=== PATIENT | male | born 2000 | race Caucasian/White ===

== ENCOUNTER 2024-05-20 08:00 | Emergency (ER) | payer BC, SELFPAY ==
--- NOTE | ~2024-05-20 | XR_ITS ---
XR wrist RT min 3V Ordering provider: Jamari Duff MD History: . injury, right wrist pain . Comparison: None. FINDINGS: BONES: No acute fracture or dislocation. Postoperative changes seen in the scaphoid bone. JOINT SPACES: Normal. SOFT TISSUES: Postoperative changes in the soft tissues seen anteriorly. IMPRESSION: No acute osseous abnormality right wrist. Postoperative changes in the scaphoid bone. Reviewed, dictated and finalized at location A.
[2024-05-20 08:06] VITALS: BP 112/75; PULSE 72; RESP 16; TEMP 36.7; O2SAT 100
--- OUTSIDE RECORDS SUMMARY | 2024-05-20 08:06 | XMS_ITS | Clinical Summary ---
Author Organization [facility] Address [address] [place] [address] Phone Care Team Providers Care Bottle Gauger Name Role Phone Christy Lombardo APRN, ANCA Primary Care P katie Allergies No known active allergies Medications No known medications Active Problems Problem Noted Date Diagnosed Date Fracture of facial bone 05/07/2011 Immunizations Immunization Administration Dates Next Due DTAP VACCINE 09/29/2001,2000,2000 DTAP VACCINE, UNSPECIFIED FORMULATION 05/08/2005 ,2000 HEP B/HIB Combined Vaccine 2000 Hepatitis A Vaccine,unspecif ied Formulation 07/17/2006,10/28/2005 Hepatitis B Vaccine, Pediatric/adolescent 2000,2000 Hib Vaccine,unspecified Formulation 09/29/2001,0 2000,2000 Hpv, Unspecified Formulation 10/10/2011 Human Papillomavirus (HPV) 9 -valent Vaccine 02/13/2015,10/12/2014 Inactivated Polio Vaccine 05/08/2005,,2000,08/18,2000 MMR Vaccine 04/30/2004,04/23/2001 Meningococcal Group B OMV 09/17/2018,09/15/2017 Meningococcal Vaccine 09/15/2017 Meningococcal Vaccine, Unspe cified Formulation 10/10/2011 Pneumococcal Vaccine Peds - 7 Valent 2000, 2000,2000 TD VACCINE 08/31/2021 TDAP Vaccine 10/24/2010 Varicella Vaccine Live 07/17/2006,04/23/2001 Social History Tobacco Use Types Packs/Day Years Used Date Smoking Tobacco: Never Smokeless Tobacco: Never Tobacco Cessation:Counseling Given: Not Answered Alcohol Use Standard Drinks/Week Comments No 0 (1 standard drink = 0.6 oz pur e alcohol) [facility] Utilities Answer Date Recorded In the past 12 months has [employer], gas, oil, or water company threatened to shut off services in your home? Patient declined 10/05/2023 Social Connection and Isolat ion Panel [NHANES] Answer Date Recorded In a typical week, how many times do you talk on the phone with family, friends, or neighbors? More than three times a week 10/05/2023 How often do you get togethe r with friends or relatives? Twice a week 10/05/2023 How often do you attend chur ch or jewish services? 1 to 4 times per year 10/05/2023 Do you belong to any clubs o r organizations such as christian groups, unions, fraternal or athletic groups, or school groups? No 10/05/2023 How often do you attend meet ings of the clubs or organizations you belong to? Patient declined 10/05/2023 Are you , , di vorced, , never , or living with a partner? Living with partner 10/05/2023 AUDIT-C Answer Date Recorded Q1: How often do you have a drink containing alc ohol? 2-4 times a month 10/05/2023 Q2: How many drinks containi ng alcohol do you have on a typical day when you are drinking? 3 or 4 10/05/2023 Q3: How often do you have si x or more drinks on one occasion? Monthly 10/05/2023 Overall Financial Resource Strain (CARDIA) Answe r Date Recorded How hard is it for you to pa y for the very basics like food, housing, medical care, and heating? Patient declined 10/05/2023 PHQ-2 Answer Date Recorded Total Score - Questions 1-9 0 08/31 [facility] - Occupational Stress Questionnaire Answer Date Recorded Do you feel stress - tense, restless, nervous, or anxious, or unable to sleep at night because your mind is troubled all the time - these days? Only a little 10/05/2023 Exercise Vital Sign Answer Date Recorde d On average, how many days pe r week do you engage in moderate to strenuous exercise (like a brisk walk)? 4 days 10/05/2023 On average, how many minutes do you engage in exercise at this level? 60 min 10/05/2023 Hunger Vital Sign Answer Date Recorded Within the past 12 months, y ou worried that your food would run out before you got the money to buy more. Patient declined Within the past 12 months, t he food you bought just didn't last and you didn't have money to get more. Patient declined 06/2023 PRAPARE - Transportation Answer Date Re corded In the past 12 months, has l ack of transportation kept you from medical appointments or from getting medications? No 06/2023 In the past 12 months, has l ack of transportation kept you from meetings, work, or from getting things needed for daily living? No 10/05/2023 Housing Stability Vital Sign Answer Terry e Recorded In the last 12 months, was t here a time when you were not able to pay the mortgage or rent on time? Patient declined 10/05/19 24 Number of Times Moved in the Last Year Not on fi le 10/05/2023 At any time in the past 12 m [facility], were you homeless or living in a half-way (including now)? Patient declined 10/05/2023 Sexually Active Control Partners Comments Yes Female Sex and Gender Information Value Date Recorded Sex Assigned at Male 04/13/2023 4:34 PM SENIOR INTERNAL AUDITOR Legal Sex Male 4:51 PM CDT Gender Identity Male 04/13/2023 4:34 PM SENIOR INTERNAL AUDITOR Sexual Orientation Straight 04/13/2023 4: 34 PM SENIOR INTERNAL AUDITOR Last Filed Vital Signs Vital Sign Reading Time Taken Comments Blood Pressure 120/74 10/07/2023 3:49 PM CDT Pulse 106 10/07/2023 3:49 PM CDT Temperature 36.8 C (98.2 F) 10/07/2023 3:49 PM CDT Respiratory Rate 20 10/07/2023 3:49 PM CDT Oxygen Saturation 97% 10/07/2023 3:49 PM CDT Inhaled Oxygen Concentration - - Weight 80.7 kg (178 lb) 10/07/2023 3:49 PM CDT Height 177.8 cm (5' 10 ) 10/07/2023 3:49 PM CDT Body Mass Index 25.54 10/07/2023 3:49 PM CDT Plan of Treatment Health Maintenance Due Date Last Done Comments Hepatitis C Virus (HCV) Screening 2000 Influenza Immunization (#1) 2023 SARS-COV-2 Immunization (2023- season) 2023 DTaP/Tdap/Td Immunization (8 - Td or Tdap) 09/01/2031 08/31/2021, 10/24/2010, 05/08/2005, Additional history exists Respiratory Syncytial Virus (RSV) Immunization (Adult) (1 - 1-dose 75+ series) 2075 Hepatitis B Immunization Completed 001, 2000, 2000 Pneumococcal Immunization Combined Aged Out 2000, 2000, 2000 No longer eligible based on patient's age to complete this topic Human Papillomavirus (HPV) Immunization Completed 02/13/2015, 10/12/2014, 10/10/2011 Meningococcal Immunization (ACWY) Completed 09/15/2017, 10/10/2011 Meningococcal B Immunization Discontinued 09/17/2018, 09/15/2017 Rotavirus Immunization Aged Out No lo nger eligible based on patient's age to complete this topic Insurance Member Subscriber Plan / Payer (Ef fective 2023-Present) Name:Marcelle Montoya Relation to Subscriber:Self Name:Marcelle Montoya Payer ID:[id number] Type:PPO Address: [address] [place] [address] [place] Care Teams Bottle Gauger Relationship Specialty Start Date End Date Christy Lombardo APRN, MILL HAND [address] [place] [address] PCP - General Advanced Practice Nurse 09/17/19
--- OUTSIDE RECORDS SUMMARY | 2024-05-20 08:06 | XMS_ITS | Referral Summary ---
Author Organization [facility] Address [address] [place] [address] Care Team Providers Care Director Of Front Office Name Role Phone Christy Lombardo NP Primary Care Provide r Keisha Kern OT Unavailable Unavailab le Allergies No known active allergies Medications fluticasone propionate (FLONASE) 50 mcg/actuation nasal spray Administer 2 sprays into each nostril daily 15.8 mL 1 0 Active Additional Information Patient taking differently:2 spray each nostrilEvery morning, Indications: Allergic Rhinitis, Informant: Self, Reported on 11/22/2019 acetaminophen 500 mg capsule Take 2 capsules (1,000 mg total) by mouth every 6 (six) hours 30 tablet 0 Active Additional Information Patient taking differently:1,000 mg oralEvery 6 hours PRN, Indications: Pain, Informant: Self, Reported on 03/09/2020 HYDROcodone-john taminophen (NORCO) 5-325 mg per tabletIndicatio ns:Pain Take 1 tablet by mouth every 4 (four) hours as needed for pain (breakthrough pain only. Don't take this medication unless you need it.) 25 tablet 1 Active docusate sodium (COLACE) 100 mg capsuleIndicati ons:constipatio n Take 1 capsule (100 mg total) by mouth 2 (two) times a day as needed for constipation 10 capsule 1 Active Active Problems Problem Noted Date Diagnosed Date Closed comminuted fracture o f waist of scaphoid bone of right wrist 03/08/2020 Closed nondisplaced fracture of middle third of navicular bone of right wrist 03/08/2020 Overview (03/08/2020): Added automatically from request for surgery [id number] Fracture of facial bone 05/07/2011 Immunizations Immunization Administration Dates Next Due DTaP 05/08/2005, 2,2000,2000 ,2000 DTaP, Unspecified 05/08/2005,2000 H1N1 All Forms 09/29/2001,2000,2000 HPV, Unspecified 10/10/2011 HPV9 02/13/2015,10/12/2014 Hep A, Unspecified 07/17/2006,10/28/2005 Hep B / HiB 2000 Hep B, Adolescent or Pediatric 2000,2000 HiB 09/29/2001,2000,2000 IPV 05/08/2005, 2,2000,2000 ,2000 Influenza, Trivalent, IM (MDV) 05/23/2011 Influenza, Unspecified 02/17/2007,05/08/2005 MMR 04/30/2004,04/23/2001 Meningococcal ACWY, Unspecified 10/10/2011 Meningococcal B, OMV (Bexsero) 09/17/2018,2017 Meningococcal Conjugate (Menveo) 10/10/2011 Meningococcal MCV4P (Menactra) 09/15/2017 Pneumococcal Conjugate 7-Valent 2000,08/18,2000 Tdap 10/24/2010 Varicella 07/17/2006,04/23/2001 Social History Tobacco Use Types Packs/Day Years Used Date Smoking Tobacco: Never Vaping Smokeless Tobacco: Never Alcohol Use Standard Drinks/Week Comments Not Currently 0 (1 standard drink = 0.6 oz pur e alcohol) AUDIT-C Answer Date Recorded Q1: How often do you have a drink containing alc ohol? Never 10/11/2019 Average Number of Drinks Not on file 020 Frequency of Binge Drinking Not on file 10/01 Sex and Gender Information Value Date Recorded Sex Assigned at Not on file Legal Sex Male 3:19 AM MICA PATCHER Gender Identity Not on file Sexual Orientation Not on file Last Filed Vital Signs Vital Sign Reading Time Taken Comments Blood Pressure 124/56 03/17/2020 11:05 AM MICA PATCHER Pulse 84 03/17/2020 11:05 AM MICA PATCHER Temperature 36.3 C (97.3 F) 03/17/2020 4:20 PM MICA PATCHER Respiratory Rate 18 03/17/2020 11:05 AM MICA PATCHER Oxygen Saturation 98% 03/17/2020 11:05 AM MICA PATCHER Inhaled Oxygen Concentration - - Weight 74.8 kg (165 lb) 03/09/2020 11:45 AM MICA PATCHER Height 177.8 cm (5' 10 ) 03/09/2020 11:45 AM MICA PATCHER Body Mass Index 23.68 03/09/2020 11:45 AM MICA PATCHER Plan of Treatment Not on file Medical Devices Implanted Type Area Entry Level Installation Technician Device Identifier Shelf Expiration Date Model / Serial / Lot Trimed Inc L3024 Screw 24mm 3mm 3mm 4mm Bone Small Headless Screw Cannulated Screw System Titanium Accepts 1.1mm [place] Wire - S.0 - [id number] Implanted:Qty: 1 on 03/17/2020 by Roberto Payne MD at [facility] Right: Wrist Tr[employer] L3024 / .0 / Insurance [facility] Advance Directives For more information, please contact: [phone] * Full Code (Latest Code Status on File) Date Activated Date Inactivated Comments 09/12/2019 7:26 PM 09/14/2019 3:42 PM Care Teams Director Of Front Office Relationship Specialty Start Date End Date Christy Lombardo NP [address] [place] [address] PCP - General Emergency Medicine 11/29/19 Keisha Kern OT Occupational Therapist Occupational Therapy 07/05/20
--- OUTSIDE RECORDS SUMMARY | 2024-05-20 08:06 | XMS_ITS | Clinical Summary ---
Author Organization [facility] Address [address] [place] [address] Care Team Providers Care Lay Ups Assembler Name Role Phone Christy Lombardo NP Primary [...] (03/08/2020): Added automatically from request for surgery [id number] Fracture of facial bone 05/07/2011 Immunizations Immunization [...] Conjugate 7-Valent 2000,08/18,2000 Tdap 10/24/2010 Varicella 07/17/2006,04/23/2001 Surgical History Surgery Date Site/Laterality Comments CLOSED REDUCTION NASAL FRACTURE 03/03/2019 - 03/02/2020 Medical History Medical History Date Comments Left maxillary fracture (HCC) Orbital fracture (HCC) Snoring Family History Medical History Relation Name Comments Hypertension Father No Known Problems Mother Anesthesia problems Neg Hx Relation Name Status Comments Father Mother Social History Tobacco Use Types Packs/Day Years [...] on file Legal Sex Male 3:19 AM SHINGLE CUTTER Gender Identity Not on file Sexual Orientation Not on file Obstetrics History Last Filed Vital Signs Vital Sign Reading Time Taken Comments Blood Pressure 124/56 03/17/2020 11:05 AM SHINGLE CUTTER Pulse 84 03/17/2020 11:05 AM SHINGLE CUTTER Temperature 36.3 C (97.3 F) 03/17/2020 4:20 PM SHINGLE CUTTER Respiratory Rate 18 03/17/2020 11:05 AM SHINGLE CUTTER Oxygen Saturation 98% 03/17/2020 11:05 AM SHINGLE CUTTER Inhaled Oxygen Concentration - - Weight 74.8 kg (165 lb) 03/09/2020 11:45 AM SHINGLE CUTTER Height 177.8 cm (5' 10 ) 03/09/2020 11:45 AM SHINGLE CUTTER Body Mass Index 23.68 03/09/2020 11:45 AM SHINGLE CUTTER Plan of Treatment Not on file Medical Devices Implanted Type Area Race Steward Device Identifier Shelf Expiration Date Model / Serial / Lot Trimed Inc L3024 Screw 24mm 3mm 3mm 4mm Bone Small Headless Screw Cannulated Screw System Titanium Accepts 1.1mm [place] Wire - S.0 - [id number] Implanted:Qty: 1 on 03/17/2020 by Roberto Payne MD at [facility] Right: Wrist [employer] L3024 / .0 / Insurance [facility] IDPA Advance Directives For more information, please contact: [phone] * Full Code (Latest Code Status on File) Date Activated Date Inactivated Comments 09/12/2019 7:26 PM 09/14/2019 3:42 PM Care Teams Lay Ups Assembler Relationship Specialty Start Date End Date Christy Lombardo NP [address] [place] [address] PCP - General Emergency Medicine 11/29/19 Keisha Kern OT Occupational Therapist Occupational Therapy 07/05/20
[2024-05-20 08:09] VITALS: BP 112/75; PULSE 79; RESP 18; O2SAT 100
[2024-05-20 08:16] VITALS: BP 120/71; PULSE 65; RESP 16; O2SAT 100
--- NOTE | 2024-05-20 08:18 | ED_ITS ---
HPI - Extremity Injury (Upper) General Chief Complaint: Extremity Injury, Upper Stated Complaint: R WRIST INJURY 1D AGO Time Seen by Provider: 05/20/24 08:17 Source: patient Mode of arrival: ambulatory Limitations: no limitations History of Present Illness HPI narrative: 24 years old white male came to the ED with pain at the right wrist. 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 Patient report history of screw in that wrist from previous injury. He denies other injuries Related Data Home Medications ?Medication ?Instructions ?Recorded ?Confirmed ?Last Taken ?Type No Home Medications 05/20/24 05/20/24 Unknown History Allergies Allergy/AdvReac Type Severity Reaction Status Date / Time No Known Allergies Allergy Verified 05/20/24 08:01 Review of Systems Review of Systems: All systems reviewed & are unremarkable except as noted in HPI and below Exam Narrative: General appearance: Well-developed, well-nourished Skin: Normal color Head: Normocephalic, nontraumatic Eyes: Clear conjunctiva ENT: Oropharynx normal, ears normal, nose normal Neck: Supple, nontender Chest and respiratory: Airway patent, no respiratory distress, no accessory muscle use Heart: Regular rate/rhythm Abdomen: Soft, nontender, no organomegaly, quiet bowel sounds Vascular: Normal peripheral pulses, normal capillary refill. Musculoskeletal: Right wrist exam shows diffuse tenderness, limited range of motion, no swelling, no deformity, positive bruises and abrasion of the skin laterally Neurologic: Alert and oriented ?3, BILLING AND QUALITY TECHNICIAN is normal as tested, no gross motor deficit Course Vital Signs Vital signs: Vital Signs Temperature 36.7 C 05/20/24 08:06 Pulse Rate 72 05/20/24 08:06 Respiratory Rate 16 05/20/24 08:06 Blood Pressure 112/75 05/20/24 08:06 Pulse Oximetry 100 05/20/24 08:06 Oxygen Delivery Room Air 05/20/24 08:06 Temperature 36.7 C 05/20/24 08:06 Pulse Rate 72 05/20/24 08:06 Respiratory Rate 16 05/20/24 08:06 Blood Pressure 112/75 05/20/24 08:06 Pulse Oximetry 100 05/20/24 08:06 Oxygen Delivery Room Air 05/20/24 08:06 MDM - Extremity Injury (Upper) Imaging Data Radiologist's impression: Impressions Wrist X-Ray 05/20/24 08:30 IMPRESSION: No acute osseous abnormality right wrist. Postoperative changes in the scaphoid bone. Critical Care Time Critical Care Time Critical Care Time: No Discharge Plan Discharge Clinical Impression: Pain in right wrist Patient Disposition: Home, Self-Care Condition: Stable Instructions: Wrist Injury (ED), How to Use a Sling (ED) Additional Instructions: Return if symptoms are worsening , call your family physician for appointment, take Tylenol, ibuprofen as as needed for aches and pain, continue home medications. Get [id number] wrist splint Keep hand elevated Patient Language: Albanian Prescriptions: No Action No Home Medications Follow-up/Referrals: PHYSICIAN NOT ON STAFF,NONSTAFF [Non-Staff] -
[2024-05-20 08:28] VITALS: BP 113/82; PULSE 76; RESP 15; O2SAT 99
--- OUTSIDE RECORDS SUMMARY | 2024-05-20 08:58 | XMS_ITS | Referral Summary ---
Author Organization [facility] Address [address] [place] [address] Care Team Providers Care Import Coordination And Production Head Name Role Phone Christy Lombardo NP Primary [...] (03/08/2020): Added automatically from request for surgery [id number] Fracture of facial bone 05/07/2011 Immunizations Immunization [...] on file Legal Sex Male 3:19 AM SATELLITE COMMUNICATIONS OPERATOR Gender Identity Not on file Sexual Orientation Not on file Last Filed Vital Signs Vital Sign Reading Time Taken Comments Blood Pressure 124/56 03/17/2020 11:05 AM SATELLITE COMMUNICATIONS OPERATOR Pulse 84 03/17/2020 11:05 AM SATELLITE COMMUNICATIONS OPERATOR Temperature 36.3 C (97.3 F) 03/17/2020 4:20 PM SATELLITE COMMUNICATIONS OPERATOR Respiratory Rate 18 03/17/2020 11:05 AM SATELLITE COMMUNICATIONS OPERATOR Oxygen Saturation 98% 03/17/2020 11:05 AM SATELLITE COMMUNICATIONS OPERATOR Inhaled Oxygen Concentration - - Weight 74.8 kg (165 lb) 03/09/2020 11:45 AM SATELLITE COMMUNICATIONS OPERATOR Height 177.8 cm (5' 10 ) 03/09/2020 11:45 AM SATELLITE COMMUNICATIONS OPERATOR Body Mass Index 23.68 03/09/2020 11:45 AM SATELLITE COMMUNICATIONS OPERATOR Plan of Treatment Not on file Medical Devices Implanted Type Area Film Processing Utility Worker Device Identifier Shelf Expiration Date Model / Serial / Lot Trimed Inc L3024 Screw 24mm 3mm 3mm 4mm Bone Small Headless Screw Cannulated Screw System Titanium Accepts 1.1mm [place] Wire - S.0 - [id number] Implanted:Qty: 1 on 03/17/2020 by Roberto Payne MD at [facility] Right: Wrist [employer] L3024 / .0 / Insurance [facility] Advance Directives For more information, please contact: [phone] * Full Code (Latest Code Status on File) Date Activated Date Inactivated Comments 09/12/2019 7:26 PM 09/14/2019 3:42 PM Care Teams Import Coordination And Production Head Relationship Specialty Start Date End Date Christy Lombardo NP [address] [place] [address] PCP - General Emergency Medicine 11/29/19 Keisha Kern OT Occupational Therapist Occupational Therapy 07/05/20
--- OUTSIDE RECORDS SUMMARY | 2024-05-20 08:58 | XMS_ITS | Clinical Summary ---
Author Organization [facility] Address [address] [place] [address] Phone Care Team Providers Care Roof Truss Detailer Name Role Phone Christy Lombardo APRN, ANCA [...] drink = 0.6 oz pur e alcohol) [facility] Utilities Answer Date Recorded In the past 12 months has [employer], gas, oil, or water company threatened to [...] often do you attend chur ch or roman catholic services? 1 to 4 times per year 10/05/2023 Do you belong to any clubs o r organizations such as oriental orthodox groups, unions, fraternal or athletic groups, or [...] Total Score - Questions 1-9 0 08/31 [facility] - Occupational Stress Questionnaire Answer Date Recorded [...] any time in the past 12 m [facility], were you homeless or living in a nursing home (including now)? Patient declined 10/05/2023 Sexually Active Control Partners Comments Yes Female Sex and Gender Information Value Date Recorded Sex Assigned at Male 04/13/2023 4:34 PM MANAGER CODING Legal Sex Male 4:51 PM CDT Gender Identity Male 04/13/2023 4:34 PM MANAGER CODING Sexual Orientation Straight 04/13/2023 4: 34 PM MANAGER CODING Last Filed Vital Signs Vital Sign Reading [...] Name:Marcelle Montoya Payer ID:[id number] Type:PPO Address: [address] [place] [address] [place] T[place] Care Teams Roof Truss Detailer Relationship Specialty Start Date End Date Christy Lombardo APRN, BROADCAST ENGINEER [address] [place] [address] PCP - General Advanced Practice Nurse 09/17/19
--- OUTSIDE RECORDS SUMMARY | 2024-05-20 08:58 | XMS_ITS | Clinical Summary ---
Author Organization [facility] Address [address] [place] [address] Care Team Providers Care Social Service Coordinator Name Role Phone Christy Lombardo NP Primary [...] (03/08/2020): Added automatically from request for surgery [id number] Fracture of facial bone 05/07/2011 Immunizations Immunization [...] on file Legal Sex Male 3:19 AM SECRET CODE EXPERT Gender Identity Not on file Sexual Orientation Not on file Obstetrics History Last Filed Vital Signs Vital Sign Reading Time Taken Comments Blood Pressure 124/56 03/17/2020 11:05 AM SECRET CODE EXPERT Pulse 84 03/17/2020 11:05 AM SECRET CODE EXPERT Temperature 36.3 C (97.3 F) 03/17/2020 4:20 PM SECRET CODE EXPERT Respiratory Rate 18 03/17/2020 11:05 AM SECRET CODE EXPERT Oxygen Saturation 98% 03/17/2020 11:05 AM SECRET CODE EXPERT Inhaled Oxygen Concentration - - Weight 74.8 kg (165 lb) 03/09/2020 11:45 AM SECRET CODE EXPERT Height 177.8 cm (5' 10 ) 03/09/2020 11:45 AM SECRET CODE EXPERT Body Mass Index 23.68 03/09/2020 11:45 AM SECRET CODE EXPERT Plan of Treatment Not on file Medical Devices Implanted Type Area Scraper Operator Device Identifier Shelf Expiration Date Model / Serial / Lot [employer] Inc L3024 Screw 24mm 3mm 3mm 4mm Bone Small Headless Screw Cannulated Screw System Titanium Accepts 1.1mm [place] Wire - S.0 - [id number] Implanted:Qty: 1 on 03/17/2020 by Roberto Payne MD at [facility] Right: Wrist [employer] L3024 / .0 / Insurance [facility] IDPA Advance Directives For more information, please contact: [phone] * Full Code (Latest Code Status on File) Date Activated Date Inactivated Comments 09/12/2019 7:26 PM 09/14/2019 3:42 PM Care Teams Social Service Coordinator Relationship Specialty Start Date End Date Christy Lombardo NP [address] [place] [address] PCP - General Emergency Medicine 11/29/19 Keihsa Kern OT Occupational Therapist Occupational Therapy 07/05/20
== END 2024-05-20 09:36 | disposition home or self-care (01) ==
PROVIDERS: Emergency Provider Emergency Medicine
DX: S69.91XA Unspecified injury of right wrist, hand and finger(s), initial encounter (principal); W28.XXXA Contact with powered lawn mower, initial encounter
CPT/HCPCS: 73110; 99283; A4565

== ENCOUNTER 2024-08-01 00:16 | Emergency (ER) | payer BC, SELFPAY ==
--- NOTE | ~2024-08-01 | US_ITS ---
EXAMINATION: US scrotum doppler DATE: 08/01/2024 01:32 INDICATION: Left testicular pain TECHNIQUE: Testicular sonogram utilizing grayscale and Doppler COMPARISON: None. FINDINGS: The right testis measures 4.2 x 2.9 x 2.5 cm. The left testis measures 4.0 x 2.6 x 2.4 cm. Symmetric normal grayscale appearance to both testes. There is normal vascular flow to both testes. The right e pididymis is normal with normal vascular flow. The left epididymis is normal with normal vascular adeline w. There is no varicocele. Small right hydroceles. IMPRESSION: 1. Small right hydrocele. Otherwise normal scrotal ultrasound. Reviewed, dictated and finalized at location A.
--- OUTSIDE RECORDS SUMMARY | 2024-08-01 00:18 | XMS_ITS | Clinical Summary ---
Author Organization [facility] Address [address] [place] [address] Phone Care Team Providers Care Physical Therapy Assistant Instructor Name Role Phone Christy Lombardo APRN, ANCA [...] drink = 0.6 oz pur e alcohol) [facility] Utilities Answer Date Recorded In the past 12 months has [employer], gas, oil, or water company threatened to [...] often do you attend chur ch or rastafari services? 1 to 4 times per year 10/05/2023 Do you belong to any clubs o r organizations such as protestant groups, unions, fraternal or athletic groups, or [...] Total Score - Questions 1-9 0 08/31 [facility] - Occupational Stress Questionnaire Answer [...] any time in the past 12 m [facility], were you homeless or living in a jail (including now)? 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 Legal Sex Male 4:51 PM CDT Gender Identity Male 04/13/2023 4:34 PM TROMMEL TENDER Sexual Orientation Straight 04/13/2023 4: 34 PM TROMMEL TENDER Last Filed Vital Signs Vital Sign Reading [...] 3:49 PM CDT Height 177.8 cm (5' 10) 10/07/2023 3:49 PM CDT Body Mass Index 25.54 10/07/2023 3:49 PM CDT Plan of Treatment Health Maintenance Due Date Last Done Comments Hepatitis C Virus (HCV) Screening 2000 SARS-COV-2 Immunization ( season) 2023 Influenza Immunization (Season Ended) 2024 DTaP/Tdap/Td Immunization (8 - Td or Tdap) [...] Name:Marcelle Montoya Payer ID:[id number] Type:PPO Address: [address] [place] [address] [place] [employer] [place] TPL Care Teams Physical Therapy Assistant Instructor Relationship Specialty Start Date End Date Christy Lombardo APRN, HAND HIDE STRETCHER [address] [place] [address] PCP - General Advanced Practice Nurse 09/17/19
[2024-08-01 00:29] VITALS: BP 111/68; PULSE 78; RESP 20; TEMP 36.6; O2SAT 100
--- NOTE | 2024-08-01 01:13 | PC.NURSE ---
Patient taken to US at this time from waiting room.
[2024-08-01 03:17] VITALS: BP 113/53; PULSE 73; RESP 16; O2SAT 99
--- NOTE | 2024-08-01 03:56 | ED.MALEGU ---
HPI - Male Genitourinary General Chief complaint: Urogenital-Male Stated complaint: Lightheaded in shower, L groin pain Time Seen by Provider: 08/01/24 03:31 History of Present Illness HPI Narrative: 24-year-old male presenting to the emergency depart with left testicular pain for about 5 days. Intermittent in nature and feels like a dull ache. States that he was not sure when he felt a worsening in the left side testicle briefly and came to the hospital for evaluation. No appreciable masses or swelling to his knowledge. No penile pain or discharge. No concern for STDs. No overlying skin changes to his knowledge. No trauma or injury. He was otherwise in his normal state of health. No history of scrotal injury or surgeries. Related Data Allergies Allergy/AdvReac Type Severity Reaction Status Date / Time No Known Allergies Allergy Verified 08/01/24 00:31 Review of Systems Review of Systems: As reviewed above in HPI Exam Narrative: GENERAL: [Well-appearing, well-nourished, and in no acute distress.] HEAD: [Normocephalic, atraumatic.] EYES: [PERRLA and EOMI.] ENT: Nares clear, no rhinorrhea or epistaxis. Mucous membranes moist. NECK: Supple. CHEST: [Clear to auscultation. No respiratory distress.] HEART: [Regular rate and rhythm]. No murmur heard. [Normal peripheral pulses.] ABDOMEN: [Soft, nondistended], [nontender], [No rigidity or guarding] : Testicles are symmetrically distended, no overlying skin changes or rashes. No testicular swelling. No epididymal tenderness. No lesions or lymphadenopathy. No inguinal hernias. No testicular pain. No scrotal erythema. No penile pain or discharge from the meatus. EXTREMITIES: Normal range of motion. [No edema.] SKIN: Warm, dry, no rash. NEURO: [No focal deficits]. Alert and oriented [x3.] PSYCH: [Normal mood and affect.] Course Vital Signs Vital signs: Vital Signs Temperature 36.6 C 08/01/24 00:29 Pulse Rate 78 08/01/24 00:29 Respiratory Rate 20 08/01/24 00:29 Blood Pressure 111/68 08/01/24 00:29 Pulse Oximetry 100 08/01/24 00:29 Oxygen Delivery Room Air 08/01/24 00:29 Temperature 36.6 C 08/01/24 00:29 Pulse Rate 70 08/01/24 05:59 Respiratory Rate 17 08/01/24 05:59 Blood Pressure 116/76 08/01/24 05:59 Pulse Oximetry 99 08/01/24 05:59 Oxygen Delivery Room Air 08/01/24 00:29 MDM - Male Genitourinary MDM Narrative Medical decision making narrative: 24-year-old otherwise healthy male presenting with left testicular pain described as a dull ache sensation intermittent for 5 days worsening in the shower this evening and now improved without intervention. Patient states he has been taking some ibuprofen. Examination is reassuring and testicles are symmetrically distended, no overlying skin changes or rashes. No testicular swelling. No epididymal tenderness. No lesions or lymphadenopathy. No inguinal hernias. No testicular pain. No scrotal erythema. No penile pain or discharge from the meatus. Testicular ultrasound was ordered to rule out testicular torsion. Low suspicion intermittent torsional pathology given the lack of any findings on examination. Potential for epididymitis, orchitis, STI, pulled muscle or hernia. Urinalysis and urine STI testing ordered. Ultrasound shows a left varicocele but no torsion. Small bilateral hydroceles. Testing was negative for any STDs or urine infection. Patient discharged with Urology follow-up and instructions on how to care for this. Patient given return precautions. Medical Records Attestation: I reviewed the patient's medical records. Lab Data Attestation: I reviewed the patient's lab results. Labs: Lab Results 08/01/24 Range/Units 04:29 Urine Color Yellow (Yellow) Urine Appearance Clear (Clear) Urine pH 6.0 (5.0-9.0) Ur Specific [place] 1.008 (1.001-1.035) Urine Protein Negative (Negative) mg/dL Urine Glucose (UA) Negative (Negative) mg/dL Urine Ketones Negative (Negative) mg/dL Ur Blood (Man) Negative (Negative) Urine Nitrate Negative (Negative) Urine Bilirubin Negative (Negative) Urine Urobilinogen 0.2 (<2.0) mg/dL Leukocyte Esterase Rfl Negative (Negative) MELONY/UL C. trachomatis (PCR) Not detected (NOT DETECTE) N. gonorrhoeae (PCR) Not detected (NOT DETECTE) T. vaginalis (PCR) Not detected (NOT DETECTE) Imaging Data Attestation: I personally reviewed and interpreted this imaging study as follows: My impression: Small bilateral hydroceles, no torsion, left varicocele Discharge Plan Discharge Clinical Impression: Left varicocele, Hydrocele, bilateral Patient Disposition: Home Condition: Stable Instructions: Antibiotic Form, Varicocele (ED), Testicle Pain (ED), Spermatic Vein Ligation (DC) Additional Instructions: You have a left-sided varicocele and small bilateral hydroceles. No signs of any twisting or torsion which is reassuring. This is a dilation of the vascular system more so on the left side and likely will improve with anti-inflammatory measures such as Tylenol and ibuprofen, scrotal support underwear and follow-up with Urology. Return with any emergent concerns such as persistent pain, testicular swelling, fevers, intractable nausea or any concerns. Patient Language: [place] Prescriptions: New ibuprofen 800 mg tablet 800 mg PO TID PRN (Reason: pain) Qty: 30 0RF acetaminophen [Tylenol Extra Strength] 500 mg tablet 1,000 mg PO TID PRN (Reason: pain) Qty: 30 0RF Follow-up/Referrals: PHYSICIAN NOT ON STAFF,NONSTAFF [Non-Staff] - Reji Dia MD [Physician] - 1 Week (Left-sided varicocele) Time of Disposition: 06:41
--- OUTSIDE RECORDS SUMMARY | 2024-08-01 04:08 | XMS_ITS | Clinical Summary ---
Author Organization [facility] Address [address] [place] [address] Phone Care Team Providers Care Wound Treatment Rn Name Role Phone Christy Lombardo APRN, ANCA [...] drink = 0.6 oz pur e alcohol) [facility] Utilities Answer Date Recorded In the past 12 months has [employer], gas, oil, or water company threatened to [...] often do you attend chur ch or tenriism services? 1 to 4 times per year 10/05/2023 Do you belong to any clubs o r organizations such as faith groups, unions, fraternal or athletic groups, or [...] Total Score - Questions 1-9 0 08/31 [facility] - Occupational Stress Questionnaire Answer Date [...] any time in the past 12 m [facility], were you homeless or living in a snf (including now)? 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
[2024-08-01 04:37] LABS: Add Urine Microscopic? NO; Appearance Urine Clear (Clear); Bilirubin Urine Negative (Negative); Blood Urine Negative (Negative); Color Urine Yellow (Yellow); Glucose Urine UA Negative (Negative); Ketones Urine Negative (Negative); Leukocyte Esterase Ur Negative LEU/UL (Negative); Nitrate Urine Negative (Negative); Protein Urine Negative (Negative); Specific Grav Ur 1.008 (1.001-1.035); Urobilinogen Urine 0.2 mg/dL (<2.0)
[2024-08-01 05:59] VITALS: BP 116/76; PULSE 70; RESP 17; O2SAT 99
[2024-08-01 06:06] LABS: Trichomonas Vag PCR NOT DETECTED (NOT DETECTE)
[2024-08-01 06:30] LABS: Chlamydia trachomatis NOT DETECTED (NOT DETECTE); Neisseria gonorrhoeae PCR NOT DETECTED (NOT DETECTE)
== END 2024-08-01 06:59 | disposition home or self-care (01) ==
PROVIDERS: Physician Assistant; Emergency Provider Student in an Organized Health Care Education/Training Program; PCP Nurse Practitioner
DX: I86.1 Scrotal varices (principal); N43.3 Hydrocele, unspecified
CPT/HCPCS: 76870; 81003; 87491; 87591; 87661; 93976; 99283